=== PATIENT | female | born 1930 | race Caucasian/White ===

== ENCOUNTER → 2016-12-20 | Outpatient (CLI) | payer MEDICARE, OTHER ==
--- NOTE | 2016-12-20 14:13 | MR ---
EXAMINATION TYPE: MR knee LT wo con DATE OF EXAM: 12/20/2016 1:48 PM COMPARISON: NONE HISTORY: Left knee pain TECHNIQUE: Multiplanar, multiecho imaging of the left knee is performed without IV contrast. FINDINGS: There is a large joint effusion partially decompressed into the gastrocnemius semimembranos us bursa. 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 There is a horizontal tear through the posterior horn and body horn junction of the medial meniscus. The meniscus is pseudoextruded. The lateral meniscus appears unremarkable. There are remodeling changes in the medial compartment. Both the anterior and posterior cruciate ligaments are intact. There is a grade 2 strain of the medial collateral ligament complex. Lateral collateral complex is in tact. Iliotibial band inserts normally upon Gerdy's tubercle. The popliteus muscle and tendon are normal. The quadriceps and patellar tendons are intact. There is mild swelling in the Hoffa fat space. IMPRESSION: 1. HORIZONTAL TEAR THROUGH THE POSTERIOR HORN AND BODY HORN JUNCTION OF THE MEDIAL MENISCUS. 2. GRADE 2 STRAIN OF THE MEDIAL COLLATERAL LIGAMENT COMPLEX. 3. LARGE JOINT EFFUSION, PARTIALLY DECOMPRESSED INTO THE GASTROCNEMIUS SEMIMEMBRANOSUS BURSA. 4. MILD CHONDROMALACIA DESCRIBED. 6. OSTEOARTHRITIS.
== END | disposition home or self-care (01) ==
LOC: RADMRIMAIN 13:23
PROVIDERS: ATTEND General Practice
DX: S83.242A Other tear of medial meniscus, current injury, left knee, initial encounter (principal); S83.412A Sprain of medial collateral ligament of left knee, initial encounter; M94.272 Chondromalacia, left ankle and joints of left foot; M19.072 Primary osteoarthritis, left ankle and foot